=== PATIENT | female | born 1980 | race American Indian/Alaskan Native ===

== ENCOUNTER 2016-09-24 05:59 | Day surgery (SDC) | payer OTHER ==
--- NOTE | 2016-09-24 07:37 | Anesthesia Consultation ---
Anesthesia Consult and Med Hx Date of service: 09/24/16 - Airway Anesthetic Teeth Evaluation: Good ROM Head & Neck: Adequate Mental/Hyoid Distance: Adequate Mallampati Class: Class II Intubation Access Assessment: Probably Good - Pulmonary Exam CTA: Yes - Cardiac Exam Cardiac Exam: RRR - Pre-Operative Health Status ASA Pre-Surgery Classification: ASA3 Proposed Anesthetic Plan: General - Pulmonary Hx Smoking: No - Cardiovascular System Hx Hypertension: Yes (takes lisinopril) - Other Systems Hx Obesity: Yes
--- NOTE | 2016-09-24 07:38 | Anesthesia Day of Surgery ---
Anesthesia Day of Surgery - Day of Surgery Patient Examined: Yes Patient H&P Reviewed: Yes Patient is NPO: Yes
[2016-09-24] MEDS ORDERED: DIPRIVAN 10 MG/ML IV ONE ×2 (07:41)
[2016-09-24] MEDS ORDERED: NACL 0.9% 1000 ML 1,000 ML IV SCH (08:00)
--- NOTE | 2016-09-24 08:05 | Discharge Summary ---
Providers - Providers Date of discharge: 09/24/16 Attending physician: KIMBERLY WALKER Primary care physician: GASPER CRAVEN Hospitalization Condition: Good Procedures: egd Disposition: - TO HOME OR SELFCARE Core Measure Documentation - Palliative Care Palliative Care/ Comfort Measures: Not Applicable - Core Measures Any of the following diagnoses?: none Exam - Physical Exam Narrative exam: unchanged from pre-op - Constitutional Vitals: Temp Pulse Resp BP Pulse Ox 97.9 F 86 18 163/66 95 09/24/16 07:33 09/24/16 07:33 09/24/16 07:33 09/24/16 07:33 09/24/16 07:33 Plan Activity: no restrictions Diet: regular Follow up with: GASPER CRAVEN MD [Primary Care Provider] - 7 Days
--- NOTE | 2016-09-24 08:15 | Operative Report ---
Operative Report Operative Report: OPERATIVE REPORT - EGD DATE 09/24/16 SURGERY: 1. Upper endoscopy. 2. biopsy of gastric polyp SURGEON: Charlotte Kidd M.D. MACHINE PACKAGE SEALER: n/a PRE OP DX: dyspepsia POST OP DX:1. hiatal hernia 2. gastric polyp TYPE OF ANESTHESIA: MAC. ESTIMATED BLOOD LOSS: None. COMPLICATIONS: None. SPECIMENS REMOVED: None. FINDINGS: 1. Small hiatal hernia. 2. gastric polyps INDICATIONS:INDICATION FOR PROCEDURE: Patient is a 36-year-old female with a long history of morbid obesity. She is planned to have a weight loss procedure and is here for preoperative planning EGD. PROCEDURE DETAILS: After consent was reviewed, patient was taken back to the operating room where patient was placed in the left lateral decubitus position and a bite block was placed in the mouth. After a time-out was called, MAC anesthesia was initiated. I then passed the endoscope into her oropharynx, into her esophagus, visualized the entire esophagus, which was all within normal limits. I then visualized the stomach and the first portion of the duodenum. There was noted to be several gastric polyps in the body of the stomach. A cold biopsy was taken of one of the polyps and sent as specimen. The duodenum was noted to be within normal limits. I then retroflexed the scope in the stomach and visualized the hiatus and I could see a hiatal hernia. I then desufflated the stomach and removed the endoscope. Patient tolerated procedure well and was transferred to recovery room in good and stable condition.
[2016-09-24 09:20] VITALS: BP 111/66
--- NOTE | 2016-09-24 11:08 | Post Anesthesia Evaluation ---
- Post Anesthesia Evaluation Patient Participated: Yes Airway Patent: Yes Stable Respiratory Function: Yes Nausea/Vomiting: No Temp > 96.8F: Yes Pain Manageable: Yes Adequeate Hydration: Yes Anesthesia Complications: No Block Receding Appropriately: Not Applicable Patient on Ventilator: No
[2016-09-24] MEDS ORDERED: XYLOCAINE MPF 2% ONE (12:30)
== END 2016-09-24 06:00 | disposition home or self-care (01) ==
LOC: GIO 05:59
PROVIDERS: ATTEND Surgery
DX: K31.7 Polyp of stomach and duodenum (principal); K44.9 Diaphragmatic hernia without obstruction or gangrene; E11.9 Type 2 diabetes mellitus without complications; I10 Essential (primary) hypertension; K21.9 Gastro-esophageal reflux disease without esophagitis; E66.01 Morbid (severe) obesity due to excess calories; Z68.44 Body mass index [BMI] 60.0-69.9, adult; Z79.899 Other long term (current) drug therapy; Z91.018 Allergy to other foods; Z91.09 Other allergy status, other than to drugs and biological substances; Z98.890 Other specified postprocedural states; Z82.49 Family history of ischemic heart disease and other diseases of the circulatory system; Z83.3 Family history of diabetes mellitus
CPT/HCPCS: 43239; 88305; 88342; J2704; J7030

== ENCOUNTER 2016-10-01 06:10 | Inpatient (IN) | payer OTHER ==
[2016-10-01] MEDS ORDERED: NACL BACTERIOSTATIC INFILTRATI ONE (06:44)
[2016-10-01] MEDS ORDERED: ANCEF/STERILE WATER 2 GM/20 ML IV NR (07:00)
[2016-10-01] MEDS ORDERED: FLAGYL 500 MG/100 ML 500 MG/100 ML BAG IV NR (07:00)
[2016-10-01] MEDS ORDERED: TRANSDERM-SCOP TD NR (07:05)
[2016-10-01 07:06] LABS: Basophils % (Auto) 0.4 % (0.0-1.8); Eosinophils % (Auto) 1.3 % (0.0-4.3); Hematocrit 37.4 % (30.3-42.9); Hemoglobin 12.5 gm/dl (10.1-14.3); Mean Corpuscular HGB Conc 34 % (30-34); Mean Corpuscular Hemoglobin 26 pg (28-32); Mean Corpuscular Volume 78 fl (79-97); Platelet Count 455 K/mm3 (140-440); Red Blood Count 4.82 M/mm3 (3.65-5.03); Red Cell Distribution Width 14.8 % (13.2-15.2); White Blood Count 7.7 K/mm3 (4.5-11.0)
[2016-10-01] MEDS ORDERED: PEPCID IV NR (07:10)
--- NOTE | 2016-10-01 07:10 | Anesthesia Consultation ---
Anesthesia Consult and Med Hx Date of service: 10/01/16 - Airway Anesthetic Teeth Evaluation: Good ROM Head & Neck: Adequate Mental/Hyoid Distance: Adequate Mallampati Class: Class III Intubation Access Assessment: Possibly Difficult - Pulmonary Exam CTA: Yes - Cardiac Exam Cardiac Exam: RRR - Pre-Operative Health Status ASA Pre-Surgery Classification: ASA3 Proposed Anesthetic Plan: General - Pulmonary Hx Smoking: No - Cardiovascular System Hx Hypertension: Yes (since 2007) - Central Nervous System Hx Psychiatric Problems: No - Hematic Hx Anemia: Yes (resolved) - Other Systems Hx Cancer: No Hx Obesity: Yes (MORBID)
--- NOTE | 2016-10-01 07:10 | Anesthesia Day of Surgery ---
Anesthesia Day of Surgery - Day of Surgery Patient Examined: Yes Patient H&P Reviewed: Yes Patient is NPO: Yes
[2016-10-01] MEDS ORDERED: ZEMURON IV ONE (07:21)
[2016-10-01] MEDS ORDERED: SUBLIMAZE ONE (07:21)
[2016-10-01] MEDS ORDERED: QUELICIN ONE (07:21)
[2016-10-01] MEDS ORDERED: XYLOCAINE MPF 2% ONE (07:21)
[2016-10-01] MEDS ORDERED: DIPRIVAN 10 MG/ML IV ONE (07:22)
[2016-10-01 07:30] LABS: Alanine Aminotransferase 16 units/L (7-56); Albumin 4.2 g/dL (3.9-5); Albumin/Globulin Ratio 1.1 %; Alkaline Phosphatase 74 units/L (35-129); Anion Gap 20 mmol/L; BUN/Creatinine Ratio 8.75; Blood Urea Nitrogen 7 mg/dL (7-17); Calcium 9.7 mg/dL (8.4-10.2); Carbon Dioxide 22 mmol/L (22-30); Chloride 98.6 mmol/L (98-107); Glucose 85 mg/dL (65-100); Potassium 3.5 mmol/L (3.6-5.0); Sodium 137 mmol/L (137-145)
[2016-10-01] MEDS ORDERED: LOVENOX SUB-Q NR (07:30)
[2016-10-01] MEDS ORDERED: ZOFRAN IV PRN (07:34)
[2016-10-01] MEDS ORDERED: NORCO PO PRN (07:34)
[2016-10-01] MEDS ORDERED: REGLAN IV PRN (07:34)
[2016-10-01] MEDS ORDERED: MORPHINE IV PRN (07:34)
[2016-10-01] MEDS ORDERED: DILAUDID IV PRN (07:34)
[2016-10-01] MEDS ORDERED: APRESOLINE IV PRN (07:34)
[2016-10-01] MEDS ORDERED: ANCEF/NS 1 GM/50 ML 1 GM/50 ML BAG IV SCH (08:00)
[2016-10-01] MEDS ORDERED: LACTATED RINGERS 1,000 ML IV SCH (08:00)
[2016-10-01] MEDS ORDERED: TORADOL IV SCH (08:00)
--- NOTE | 2016-10-01 08:39 | Admit Criteria Form ---
Admission Criteria Documentation: AMBULATORY SURGERY EXCEPTION CRITERIA Ambulatory Surgery Exception Criteria ( Place 'X' for any and all applicable criteria): Surgery or procedure performed on ambulatory basis may require inpatient stay for[A] ANY ONE of the following(1)(2)(3)(4)(5)(6)(7)(8)(9): [X] I. A preoperative situation, condition, or finding that warrants inpatient stay as indicated by ANY ONE of the following: [] a) Inpatient care needed because of severity of a disease or condition rather than the surgery (eg, severe cardiac or respiratory disease, severe infection) (15) (16 ) (17) (18) [] b) Emergent procedure (eg, angioplasty for acute ischemia)(19) [] c) Complex surgical approach or situation as indicated by ANY ONE of the following(3): [] i) Open approach needed instead of usual endoscopic, transcatheter, or other less invasive procedure [] ii) Difficult approach because of previous operation [] iii) Airway monitoring required after open neck procedures(20)(21) [] iv) Large mass requiring unusually extensive dissection [] v) Additional complicating feature requiring inpatient care (eg, drain management)(22(23): [X] d) Major surgery in a pt with high anesthetic risk as indicated by ANY ONE of the following (2)(3)(5)(7)(8): [X] i) ASA risk class III or higher (severe systemic disease impairing function) [D] [] ii) Advanced age (eg, older than 85 years)(14)(24) [] iii) Symptomatic heart failure(25) [] iv) Symptomatic asthma or COPD(8)(21) [] v) Morbid obesity with hemodynamic or respiratory problems(20)( 21)(26)(27) [] vi) Obstructive sleep apnea(20)(21) [] vii) Former premature infants who are younger than 60 weeks [] viii) High risk for severe postoperative abnormalities (eg, severe postoperative hypocalcemia after parathyroidectomy for severe hyperparathyroidism)(27)( 28) [] ix) Unstable angina(25) [] e) Drug-related risk requiring inpatient stay as indicated by ANY ONE of the following(5)(10)(14)(32)(33) [] i) Procedure requires discontinuing drugs or other therapy (eg , antiarrhythmic medication, antiseizure medication), which necessitates inpatient observation or treatment.(18)(31) [] ii) Major surgery and high risk drug use as indicated by ANY ONE of the following: [] 1) Active abuse of cocaine or similar drug [] 2) Monoamine oxidase inhibitor use [] 3) Other drug identified as posing risk [] f) Inadequate outpatient care situation as indicated by ANY ONE of the following(5)(10)(14)(32)(33) [] i) Patient lives remote from medical facility and procedure has urgent complication potential, and temporary nearby residence cannot be arranged [] ii) Patient will have postprocedure incapacitation and inadequate assistance at home, or alternative level of care cannot be arranged. [] iii) Patient will have long general anesthesia or procedure side effect resolution time, and competent person to stay with patient on first postoperative night at home or alternative level of care cannot be arranged. []iv) Other inadequate outpatient situation that cannot be handled by other means [] II. A perioperative event, condition, or finding that warrants inpatient stay as indicated by ANY ONE of the following (1)(2)(3): [] a) Inadequate physiologic recovery: cardiovascular, respiratory, or hemodynamic status not normal or near preoperative baseline(18) [] b) Hemodynamic instability [] c) Patient not alert with near normal or baseline mental status [] d) Temperature not normal or as expected and not appropriate for outpatient treatment of condition [] e) Ambulatory or appropriate activity level status not yet achieved post procedure [E](34)(35)(36) [] f) Operative site not appropriate (eg, unexpected or excessive drainage or bleeding) [] g) Postoperative effects not resolved or adequately managed (eg, significant pain or vomiting not appropriate for outpatient or next level of care)(10)(12) [] h) Complicating features requiring inpatient care as indicated by ANY ONE of the following(37): [] i) Severe complications of procedure (eg, bowel injury, airway compromise, vascular injury,severe hemorrhage) [] ii) Extensive (eg, dissection far beyond usual scope of procedure ) or prolonged (eg, 120 minutes beyond usual) surgery needed requiring inpatient postoperative care [] iii) Conversion to an open or complex procedure that requires inpatient care (eg, open vs laparoscopic cholecystectomy, abdominal vs vaginal hysterectomy)(38) [] iv) Comorbid condition or test result identified during or post procedure that requires inpatient care (7) [] v) Malignant hyperthermia(30) [] vi) Other complicating feature requiring inpatient care(22)(23) Inpatient stay may be needed until ALL of the following are present (1)(2)(3)(4) (5)(6)(10)(14)(33)(40): []a) Physiologic recovery: cardiovascular, respiratory, and hemodynamic status normal or near preoperative baseline []b) Hemodynamic stability []c) Patient alert, with near normal or baseline mental status []d) Temperature appropriate: patient afebrile or temperature appropriate for outpt treatment of condition []e) Activity level appropriate: ambulatory or appropriate activity level post procedure []f) Operative site appropriate as indicated by ALL of the following: []i) Site dry or with expected drainage []ii) Any blood noted is as expected for procedure. []g) Postoperative effects resolved or managed as indicated by ALL of the following: []i) Pain management appropriate for outpatient (or next level of) care(10) []ii) Minimal nausea and vomiting: if present, successfully treated with oral medication(12) []iii) Headache, dizziness, or drowsiness (if present) are mild. []h) Voiding status acceptable as indicated by ANY ONE of the following: []i) Voiding spontaneously []ii) No voiding but instructions given for follow-up in 6 to 8 hours []iii) Urinary catheter in place, and instructions given for follow-up []i) Complicating features requiring inpatient care manageable at a lower level of care(37) []j) Comorbid conditions manageable at a lower level of care(37) The original [employer] content created by [employer] has been revised. The portions of the content which have been revised are identified through the use of italic text or in bold, and [facility] [employer] has neither reviewed nor approved the modified material. All other unmodified content is copyright [employer]. Please see references footnoted in the original [employer] edition 2016 Admission Criteria Met: Yes
[2016-10-01] MEDS ORDERED: NACL 0.9% IR ONE (08:40)
[2016-10-01] MEDS ORDERED: XYLOCAINE 1% 20 mL INFILTRATI ONE (08:40)
[2016-10-01] MEDS ORDERED: MARCAINE-EPI 0.5%-1:200,000 INFILTRATI ONE (08:40)
[2016-10-01] MEDS ORDERED: MARCAINE-EPI/PF 0.5%-1:200,000 INFILTRATI ONE (08:43)
[2016-10-01] MEDS ORDERED: XYLOCAINE 1% 20 mL ONE (08:43)
--- NOTE | 2016-10-01 09:46 | Operative Report ---
Operative Report Operative Report: Operative Report DATE OF PROCEDURE: 10/01/16 PREOPERATIVE DIAGNOSES: Morbid obesity, hiatal hernia POSTOPERATIVE DIAGNOSES: 1.same as pre-op SURGEON: Charlotte Kidd M.D. NURSING SURGICAL SERVICES DIRECTOR: Porter Herbert CSA PROCEDURE: 1. laparoscopic sleeve gastrectomy 2. laparoscopic hiatal hernia repair ANESTHESIA: General. ESTIMATED BLOOD LOSS: <5 mL. COMPLICATIONS: None. SPECIMEN: Partial gastrectomy. FINDINGS: 1. hiatal hernia INDICATION FOR PROCEDURE: Patient is a 36-year-old female with a long history of morbid obesity. She has tried multiple efforts at weight loss without watermaster success. She is here today for sleeve gastrectomy. PROCEDURE IN DETAIL: After consent was reviewed, patient was taken back to the operating room, where patient was placed supine on the bed with both arms out. The patient's legs were doubly strapped to the bed. Patient had a foot board in place. Patient had a body warmer placed by anesthesia. Patient was then prepped and draped in normal sterile surgical fashion. After a time-out was called, I made a stab incision in the umbilicus and placed a Veress needle through this incision and insufflated the abdomen to 18 mmHg pressure. I then counted down a handsbreadth below the xiphoid process in the midline and slightly left lateral injected local anesthetic and made about 1.5 cm transverse incision. I then used a 5-mm Optiview trocar to enter into the abdomen. I then placed a 45- degree scope through this port and inspected the abdomen. There was no injury on entry of the abdomen. I then placed two 5-mm ports in the right upper quadrant, one along the anterior axillary line and 1 subxiphoid below the costovertebral angle. I then placed a 15-mm port about a handsbreadth left lateral and inferior to my anterior axillary port. I then placed left upper quadrant port along the anterior axillary line in a similar fashion. I then placed the liver retractor through the subxiphoid port and placed the patient in full reverse Trendelenburg. The right and left crura were skeletonized accentuating a small hiatal hernia. An anterior cruraplasty was perfromed with a figure-of-8 stitch using surgidac suture to reapproximate the crura. The stomach and 2cm of distal esophagus were resting in the abdomen without tension. I then identified the pylorus and then counted off 6cm from the pylorus. I then used a LigaSure cutting device to enter into the lesser sac. At that point and then I took down the short gastrics all the way up to the left king. Then I had anesthesia pass down a 36-[place] bougie along the lesser curvature of the stomach. I made sure everything else was out of the abdomen except the bougie. I then created my gastric sleeve using a 60-mm laparoscopic stapler. . The sleeve looked good without any twisting or torsion. I then had anesthesia to remove the bougie. Hemostasis was obtained along the staple line. I then used Tiseel along the entirety of the staple line and some on the liver. I then removed liver grasper and took it off the field. I then removed the stomach through the 15-mm port. I then closed that fascia with a #1 PDS in a [id number] fashion using a Joe-Jena. I then desufflated the abdomen and then removed all port sites. I then closed the incisions with 4-0 Monocryl in subcuticular fashion. I then dressed the wounds with Dermabond. Patient tolerated the procedure well and was transferred to recovery room in good and stable condition.
[2016-10-01] MEDS ORDERED: NON-FORMULARY (Lisinopril/Hydrochlorothiazide [Zestoretic 20-25 Mg] 1 TAB) PO SCH (10:00)
[2016-10-01] MEDS: DILAUDID IV PRN ×3 (10:15→21:04)
[2016-10-01] MEDS: MYLICON PO PRN ×2 (10:20→22:56)
[2016-10-01] MEDS ORDERED: ROBINUL ONE (10:30)
[2016-10-01] MEDS ORDERED: DECADRON ONE (10:30)
[2016-10-01] MEDS ORDERED: ZOFRAN ONE (10:30)
[2016-10-01] MEDS ORDERED: NEOSTIGMINE ONE (10:30)
[2016-10-01] MEDS: TORADOL IV SCH ×3 (10:35→22:56)
[2016-10-01] MEDS: LOVENOX SUB-Q SCH (13:40)
[2016-10-01] MEDS: ZESTRIL PO SCH (16:49)
[2016-10-01] MEDS: HCTZ PO SCH (16:49)
[2016-10-01] MEDS: LACTATED RINGERS 1,000 ML IV SCH (17:29)
[2016-10-01] MEDS: FLAGYL 500 MG/100 ML 500 MG/100 ML BAG IV SCH ×2 (17:32→23:04)
[2016-10-02] MEDS: LACTATED RINGERS 1,000 ML IV SCH (01:19)
[2016-10-02 01:49] LABS: Basophils % (Auto) 0.1 % (0.0-1.8); Hematocrit 34.8 % (30.3-42.9); Hemoglobin 11.7 gm/dl (10.1-14.3); Mean Corpuscular HGB Conc 34 % (30-34); Mean Corpuscular Hemoglobin 26 pg (28-32); Mean Corpuscular Volume 78 fl (79-97); Platelet Count 398 K/mm3 (140-440); Red Blood Count 4.45 M/mm3 (3.65-5.03); White Blood Count 10.6 K/mm3 (4.5-11.0)
[2016-10-02 02:12] LABS: Alanine Aminotransferase 15 units/L (7-56); Albumin 3.6 g/dL (3.9-5); Albumin/Globulin Ratio 1.1 %; Alkaline Phosphatase 64 units/L (35-129); Anion Gap 22 mmol/L; BUN/Creatinine Ratio 8.57; Blood Urea Nitrogen 6 mg/dL (7-17); Calcium 9.4 mg/dL (8.4-10.2); Carbon Dioxide 20 mmol/L (22-30); Chloride 100.9 mmol/L (98-107); Glucose 96 mg/dL (65-100); Sodium 139 mmol/L (137-145); Total Protein 6.9 g/dL (6.3-8.2)
[2016-10-02] MEDS: TORADOL IV SCH (05:58)
[2016-10-02] MEDS: FLAGYL 500 MG/100 ML 500 MG/100 ML BAG IV SCH (05:59)
[2016-10-02 07:52] VITALS: BP 137/80
[2016-10-02] MEDS: HCTZ PO SCH (09:00)
[2016-10-02] MEDS: MYLICON PO PRN (09:00)
[2016-10-02] MEDS: ZESTRIL PO SCH (09:00)
[2016-10-02] MEDS: LOVENOX SUB-Q SCH (09:00)
--- NOTE | 2016-10-02 11:52 | Progress Note ---
Subjective Date of service: 10/01/16 Interval history: Patient is ambulating well, voiding, minimal pain, no anesthesia complications. Objective - Constitutional Vitals: Vital Signs - 12hr 10/02/16 10/02/16 10/02/16 05:06 05:58 07:28 Temperature 98.3 F Pulse Rate 73 Respiratory 20 16 Rate Blood Pressure 137/90 O2 Sat by Pulse 100 99 Oximetry 10/02/16 10/02/16 07:50 09:00 Temperature 98.4 F Pulse Rate 92 H 92 H Respiratory 18 Rate Blood Pressure 137/80 137/80 O2 Sat by Pulse 100 Oximetry - Labs CBC & Chem 7: 10/02/16 01:21 10/02/16 01:21 Labs: Abnormal lab results 10/02/16 10/02/16 Range/Units 01:21 01:21 MCV 78 L (79-97) fl MCH 26 L (28-32) pg Lymph % (Auto) 12.9 L (13.4-35.0) % Seg Neutrophils % 81.5 H (40.0-70.0) % Seg Neutrophils # 8.6 H (1.8-7.7) K/mm3 Carbon Dioxide 20 L (22-30) mmol/L BUN 6 L (7-17) mg/dL Albumin 3.6 L (3.9-5) g/dL
--- NOTE | 2016-10-02 15:02 | Discharge Summary ---
Providers - Providers Date of Admission: 10/01/16 06:10 Date of discharge: 10/02/16 Attending physician: KIMBERLY WALKER Hospitalization Condition: Good Hospital course: 36 y.o. F admitted to the hospital for lap sleeve gastrectomy and hiatal hernia repair. Pt tolerated the procedure well without any complications. One POD 1 she tolerated clears. Her pain was controlled prior to discharge. She had an uneventful hospital stay. Disposition: DC-30 STILL A PATIENT Core Measure Documentation - Palliative Care Palliative Care/ Comfort Measures: Not Applicable - Core Measures Any of the following diagnoses?: none Exam - Physical Exam Narrative exam: VSS gen: no acute distress cardio: RRR Lungs: cta bl abd- soft, obese, incisional tenderness, incision sites are cdi. no rebound no guarding - Constitutional Vitals: Temp Pulse Resp BP Pulse Ox 98.4 F 92 H 18 137/80 100 10/02/16 07:50 10/02/16 09:00 10/02/16 07:50 10/02/16 09:00 10/02/16 07:50 Plan Activity: other (no lifting >15lbs) Diet: other (sugar free clears ) Follow up with: JIMBO CRAVEN [Other] - 7 Days
== END 2016-10-02 12:50 | disposition home or self-care (01) | DRG 327 ==
LOC: 3A 06:10 → 2B-SURG 10:17
PROVIDERS: ADMIT Surgery; ATTEND Surgery
PROC: 0DB64Z3 Excision of Stomach, Percutaneous Endoscopic Approach, Vertical (ICD-10-PCS; principal; 2016-10-01)
PROC: 0BQR4ZZ (ICD-10-PCS; principal; 2016-10-01)
PROC: 0BQS4ZZ (ICD-10-PCS; principal; 2016-10-01)
DX: K44.9 Diaphragmatic hernia without obstruction or gangrene (principal); Z68.44 Body mass index [BMI] 60.0-69.9, adult; E66.01 Morbid (severe) obesity due to excess calories; I10 Essential (primary) hypertension; E11.9 Type 2 diabetes mellitus without complications; K21.9 Gastro-esophageal reflux disease without esophagitis; Z82.49 Family history of ischemic heart disease and other diseases of the circulatory system
CPT/HCPCS: 36415; 80053; 84703; 85025; 88307; 94760; C9250; J0330; J0690; J1100; J1170; J1650; J1885; J2405; J2704; J2710; J2765; J3010; J7120